=== PATIENT | female | born 1965 | race Hispanic/Latino ===

== ENCOUNTER → 2018-04-09 | Outpatient (CLI) | payer BC ==
[~2018-04-09] MED LIST: IOPAMIDOL 370 MG/ML 200 ML INFUS..BTL INJ ONE; SODIUM CHLORIDE 0.9% 50ML 50 ML ONE
--- NOTE | 2018-04-09 14:00 | Diagnostic Imaging Report ---
EXAM: CT Abdomen and Pelvis WITH contrast INDICATION: Right-sided abdominal pain. Concern for appendicitis. COMPARISON: 05/24/2013. TECHNIQUE: Abdomen and pelvis were scanned utilizing a multidetector helical scanner from the lung base to the pubic symphysis after administration of IV contrast. Coronal and sagittal reformations were obtained. Routine protocol was performed. Scan was performed when during portal venous phase. IV CONTRAST: 100 cc Isovue-[id number]. ORAL CONTRAST: Water. RADIATION DOSE: Total DLP: 212.04 mGy*cm Estimated effective dose: (DLP x 0.015 x size factor) mSv COMPLICATIONS: None FINDINGS: LINES and TUBES: None. LOWER THORAX: Mild bibasilar subsegmental atelectasis. HEPATOBILIARY: 9.6 mm low-attenuation lesion in the hepatic dome medially on images 6 series 2. 1.2 cm low-attenuation lesion in the posterior segment of the right hepatic lobe on image 13 series 2. Irregular peripherally enhancing low-attenuation lesion in the posterior aspect of segment 6 on image 28 series 2, previously measured 3.9 cm in maximal dimension (most suggestive of a hemangioma). GALLBLADDER: Surgically absent. Mild reservoir effect. SPLEEN: Surgically absent. PANCREAS: Status post resection of the pancreatic tail without evidence of local recurrence. The remainder pancreas is unremarkable. ADRENALS: No adrenal nodules KIDNEYS/URETERS: Kidneys enhance symmetrically. No hydronephrosis. No cystic or solid mass lesions. No stones. GI TRACT: No abnormal distention, wall thickening, or evidence of bowel obstruction. Appendix is normal. PELVIC ORGANS/BLADDER: Unremarkable. LYMPH NODES: No lymphadenopathy. VESSELS: Mild atherosclerotic secretions of the aorta and iliac arteries without aneurysmal dilatation. PERITONEUM / RETROPERITONEUM: No free air or fluid. BONES: Degenerative disc disease at L5-S1. SOFT TISSUES: Unremarkable. IMPRESSION: 1. No evidence of acute appendicitis as per clinical query. No acute abdominal pelvic abnormality. Discussed with Jia with Dr. Bone office at 1:50 PM on 04/09/18. 2. Stable hepatic lesions. Signed by: Dr. Lesli Alvarado M.D. on 04/09/2018 1:57 PM
== END | disposition home or self-care (01) ==
LOC: CT 11:39
PROVIDERS: ATTEND Family Medicine
DX: R10.31 Right lower quadrant pain (principal); R10.11 Right upper quadrant pain; R11.0 Nausea; K76.9 Liver disease, unspecified; Z85.07 Personal history of malignant neoplasm of pancreas; Z90.411 Acquired partial absence of pancreas; Z90.81 Acquired absence of spleen; Z90.49 Acquired absence of other specified parts of digestive tract
CPT/HCPCS: 74177; Q9967

== ENCOUNTER → 2018-08-20 | Outpatient (CLI) | payer BC ==
--- NOTE | 2018-08-20 16:39 | Diagnostic Imaging Report ---
Exam: Bone mineral density study. History: Osteopenia. Comparison: None Discussion: Evaluation of the left hip, and lumbar spine was performed utilizing DEXA Hologic bone densitometer. The study is technically adequate. Left hip total bone mineral density: 0.772gm/cm2, T-score is -1.4, Z-score is -0.6. Left hip femoral neck bone mineral density: 0.707gm/cm2, T-score is -1.4, Z-score is -0.3. Lumbar spine total bone mineral density:0.903gm/cm2, T-score is-1.3, Z-score is -0.2. Impression: 1. Osteopenia of the left hip, fracture risk is increased 2. Osteopenia of the lumbar spine, fracture risk is increased The BMD change versus baseline is -2.0% and the BMD change versus previous 1.9% . Least significant change (LSC) for bone mineral density as provided by special effects specialist is 0.023 g/cm2 for lumbar spine and 0.027 g/cm2 for total hip. 10 -year fracture risk per WHO Fracture Risk Assessment Tool (FRAX) for: Major osteoporotic fracture is 3.1% Hip fracture is 0.2% The above fracture probability is calculated for an untreated patient. Fracture probably may be lower if the patient has received treatment. All treatment decisions require clinical judgment and consideration of individual patient factors, including patient preferences, comorbidities, previous drug use and risk factors not captured in the FRAX model (e.g. frailty, falls, vitamin D deficiency, increased bone turnover, interval significant decline in BMD). The patient's fracture risk is compared to an age-matched control. Medical evaluation for secondary causes of low bone bone mineral density may be appropriate. Correlate clinically for the necessity and timing of the next bone mineral density study. Signed by: Dr. El Jeffers M.D. on 08/20/2018 4:35 PM
--- NOTE | 2018-09-08 08:46 | Diagnostic Imaging Report ---
#[id number] - MGSCRBIL #BILATERAL DIGITAL SCREENING MAMMOGRAM WITH CAD: 08/20/2018 CLINICAL: Routine screening. Routine screening. Comparison is made to exam dated: 09/01/2017 mammogram - [facility]. Current study contains 4 films. There are scattered fibroglandular elements in both breasts. Current study was also evaluated with a Computer Aided Detection (CAD) system. No significant masses, calcifications, or other findings are seen in either breast. There has been no significant interval change. IMPRESSION: NEGATIVE There is no mammographic evidence of malignancy. A 1 year screening mammogram is recommended. The patient will be notified by letter of the results. Jose Alfredo aguiar/landon:09/07/2018 12:53:35 Medical Transcription: Rubi BROWNING(R)(M), [facility] letter sent: Compared to Prior B9 Mammogram BI-RADS: 1 Negative
== END ==
LOC: MAMMO 15:28
PROVIDERS: ATTEND Obstetrics & Gynecology
DX: Z12.31 Encounter for screening mammogram for malignant neoplasm of breast (principal); Z13.820 Encounter for screening for osteoporosis
CPT/HCPCS: 77067; 77080

== ENCOUNTER → 2019-09-14 | Outpatient (CLI) | payer BC ==
--- NOTE | 2019-09-15 09:40 | Diagnostic Imaging Report ---
Exam: Bone mineral density study. History: Osteopenia. Comparison: 08/20/2018 Discussion: Evaluation of the left hip and lumbar spine was performed utilizing DEXA Hologic bone densitometer. The study is technically adequate. Left hip total bone mineral density: 0.760gm/cm2, T-score is -1.5, Z-score is -0.7. Left hip femoral neck bone mineral density: 0.676gm/cm2, T-score is -1.7, Z-score is -0.6. Lumbar spine total bone mineral density:0.875gm/cm2, T-score is-1.6, Z-score is -0.4. Impression: 1. Osteopenia of the left hip, fracture risk is increased 2. Osteopenia of the lumbar spine, fracture risk is increased The BMD change versus baseline is -3.6% and the BMD change versus previous -1.6% . Least significant change (LSC) for bone mineral density as provided by accounts payable accountant is 0.023 g/cm2 for lumbar spine and 0.027 g/cm2 for total hip. 10 -year fracture risk per WHO Fracture Risk Assessment Tool (FRAX) for: Major osteoporotic fracture is 3.4% Hip fracture is 0.3% The above fracture probability is calculated for an untreated patient. Fracture probably may be lower if the patient has received treatment. All treatment decisions require clinical judgment and consideration of individual patient factors, including patient preferences, comorbidities, previous drug use and risk factors not captured in the FRAX model (e.g. frailty, falls, vitamin D deficiency, increased bone turnover, interval significant decline in BMD). The patient's fracture risk is compared to an age-matched control. Medical evaluation for secondary causes of low bone bone mineral density may be appropriate. Correlate clinically for the necessity and timing of the next bone mineral density study. Signed by: Dr. El Jeffers M.D. on 09/15/2019 9:37 AM
== END ==
LOC: MAMMO 14:57
PROVIDERS: ATTEND Obstetrics & Gynecology
DX: Z12.31 Encounter for screening mammogram for malignant neoplasm of breast (principal); Z13.820 Encounter for screening for osteoporosis
CPT/HCPCS: 77067; 77080

== ENCOUNTER → 2020-09-14 | Outpatient (CLI) | payer BC | LOC: MAMMO 15:11 | PROVIDERS: ATTEND Obstetrics & Gynecology | DX: Z12.31 Encounter for screening mammogram for malignant neoplasm of breast (principal); M81.0 Age-related osteoporosis without current pathological fracture | CPT/HCPCS: 77067; 77080 ==

== ENCOUNTER → 2021-09-11 | Outpatient (CLI) | payer BC | LOC: MAMMO 12:41 | PROVIDERS: ATTEND Obstetrics & Gynecology | DX: Z12.31 Encounter for screening mammogram for malignant neoplasm of breast (principal); M85.88 Other specified disorders of bone density and structure, other site | CPT/HCPCS: 77067; 77080 ==

== ENCOUNTER → 2022-11-06 | Outpatient (CLI) | payer BC | LOC: MRI 14:50 | PROVIDERS: ATTEND Specialist | DX: M54.16 Radiculopathy, lumbar region (principal) | CPT/HCPCS: 72148 ==

== ENCOUNTER → 2024-10-05 | Outpatient (REF) | payer BC | LOC: MAMMO 13:33 | PROVIDERS: ATTEND Obstetrics & Gynecology | DX: Z12.31 Encounter for screening mammogram for malignant neoplasm of breast (principal); M85.88 Other specified disorders of bone density and structure, other site | CPT/HCPCS: 77067; 77080 ==